=== PATIENT | male | born 1965 | race Caucasian/White ===

== ENCOUNTER 2016-09-17 23:08 | Emergency (ER) | payer SELFPAY ==
[~2016-09-17 23:08] MED LIST: ADULT LOW DOSE81 M1 PO; AMITRIPTYLINE H25 M1 PO; ASPIRIN325 M3 PO; BENTYL10 M1 PO; CLOPIDOGREL75 M1 PO; COREG3.125 M1 PO; COREG6.25 M1 PO; COZAAR50 M1 PO; IMODIUM A-D2 M4 PO; LAMICTAL25 M2 PO; LIPITOR80 M1 PO; LOMOTIL 2.5-0.1 EACH PO; NEXIUM20 M1 PO; NORCO 5-325 TA1 EACH PO; NORCO 5/3251 TAB PO; NORVASC10 M2 PO; OXYCONTIN10 M2 PO; PANTOPRAZOLE SO40 M3 PO; PERCOCET 5-3251 EACH PO; PROTONIX40 M2 PO; REMERON30 M1 PO; SERTRALINE HCL50 M4 PO; TYLENOL325 M2 PO; WELCHOL625 M1 PO; ZOFRAN4 M2 PO; ZOLOFT50 M1 PO
[2016-09-18 00:13] LABS: BASO % 0.5 % (0-2); BASO ABSOLUTE COUNT 0.1 tho/cmm (0.0-0.2); EOS % 3.6 % (0-7); EOSINOPHIL ABSOLUTE COUNT 0.4 tho/cmm (0.0-0.7); HCT-HEMATOCRIT 46.4 % (36.0-53.5); HGB-HEMOGLOBIN 15.8 gm/dl (13.5-17.0); IMMATURE GRANULOCYTES ABSOLUTE 0.06 tho/cmm (0-0.03); IMMATURE GRANULOCYTES PERCENT 0.5 % (0-0.3); LYMPH % 33.2 % (20-45); LYMPH ABSOLUTE COUNT 3.8 tho/cmm (0.8-4.5); MCH (MEAN CORPUSCULAR HGB) 33.5 pg (28.0-32.0); MCHC MEAN CORPUSCULAR HGB CONC 34.1 % (32.0-36.0); MCV (MEAN CELL VOLUME) 98.3 fl (82.0-96.0); MEAN PLATELET VOLUME 10.6 cmc (9.4-12.4); MONO % 9.8 % (0-12); MONOCYTE ABSOLUTE COUNT 1.1 tho/cmm (0.0-1.2); NEUTROPHILS % 52.4 % (40-80); PLATELET COUNT 255 tho/cmm (150-450); RED BLOOD COUNT 4.72 mil/cmm (4.40-5.70); RED CELL DISTRIBUTION WIDTH 14.6 % (12.4-16.4); WHITE BLOOD COUNT 11.4 tho/cmm (4.0-10.0)
[2016-09-18 00:31] LABS: ALB/GLOB RATIO 0.8 (0.8-2.0); ALBUMIN 3.5 g/dl (3.5-5.0); ALKALINE PHOSPHATASE 95 U/L (33-138); ALT/SGPT 30 U/L (12-78); BILIRUBIN,TOTAL 0.2 mg/dl (0.0-1.5); BLOOD UREA NITROGEN 15 mg/dl (6-24); CALCIUM 8.6 mg/dl (8.5-10.5); CARBON DIOXIDE-VENOUS 26 mmol/L (22-32); CHLORIDE 108 mmol/l (96-110); GLUCOSE 97 mg/dL (70-110); SODIUM 143 mmol/L (135-145); eGFR VALUE FOR BLACK >90 mL/Min
[2016-09-18 00:33] LABS: ANION GAP 13 mmol/L (0-20); AST/SGOT 23 U/L (10-40); POTASSIUM 3.6 mmol/L (3.7-5.1)
[2016-11-28] MEDS ORDERED: ISOSORBIDE MONO30 M4 (20:18)
== END 2016-09-18 03:12 ==
LOC: EDMED 23:08
PROVIDERS: Emergency Medicine
DX: I11.9 Hypertensive heart disease without heart failure (principal); I25.10 Atherosclerotic heart disease of native coronary artery without angina pectoris; E78.5 Hyperlipidemia, unspecified; Z86.73 Personal history of transient ischemic attack (TIA), and cerebral infarction without residual deficits; F17.200 Nicotine dependence, unspecified, uncomplicated; Z79.82 Long term (current) use of aspirin; Z79.899 Other long term (current) drug therapy
CPT/HCPCS: J2270; J2405